=== PATIENT | female | born 1980 | race Caucasian/White ===

== ENCOUNTER 2023-12-09 05:57 | Day surgery (SDC) | payer BC ==
[~2023-12-09] VITALS: Ht 165.1 cm; Wt 88.8 kg
[2023-12-09] VITALS (18 sets, daily range): BP systolic 124–150; BP diastolic 66–99; PULSE 75–90; RESP 11–17; TEMP 98.4; O2SAT 96–100
[~2023-12-09 05:57] MED LIST: CEFD300C17 PO; HYDR-3686 PO; LIDOcaine 1% w/EPI 1:100,000 inj. MDV 50 ML VIAL ONE; cocaine 4% topical solution 4ml bottle ONE; mupirocin 2% ointment 22GM ONE; oxymetazoline 15 ML nasal spray NS ONE; tranexamic acid 100mg/ml inj. ONE
[2023-12-09] MEDS: cefazolin 2gm/D5W 100mL 100 ML IV ONE (06:51)
[2023-12-09] MEDS: tranexamic acid inj. 1,000 MG in normal saline IV soln 100ML IV ONE (06:51)
[2023-12-09] MEDS: ringers solution, lacted 1,000 ML IV SCH (06:52)
[2023-12-09] MEDS: famotidine 20mg tablet PO ONE (06:53)
[2023-12-09] MEDS ORDERED: labetalol 20mg/4ml (5mg/ml) syringe IV PRN (08:00)
[2023-12-09] MEDS ORDERED: proCHLORperazine 10 MG/2 ml inj IV PRN (08:00)
[2023-12-09] MEDS ORDERED: ringers solution, lacted 1,000 ML IV SCH (08:00)
[2023-12-09] MEDS ORDERED: meperidine/PF 25mg/ml syringe IV PRN (08:00)
[2023-12-09] MEDS ORDERED: ondansetron/PF 4mg/2ml inj IV PRN (08:00)
[2023-12-09] MEDS ORDERED: hydrALAZINE 20mg/ml inj. IV PRN (08:00)
[2023-12-09] MEDS ORDERED: morphine 2 MG/ML inj. syringe IV PRN (08:00)
[2023-12-09] MEDS ORDERED: morphine 4 MG/ML inj SYRINge IV PRN (08:00)
[2023-12-09] MEDS ORDERED: fentaNYL/PF 50MCG/1 ML 2ML syringe ONE (08:09)
[2023-12-09] MEDS ORDERED: midazolam 1 mg/ML 2ml injection ONE (08:11)
[2023-12-09] MEDS ORDERED: sevoflurane 250ml liquid IH ONE (08:12)
[2023-12-09] MEDS ORDERED: Thrombin (Bovine) 5,000 unit vial TP ONE (08:20)
[2023-12-09] MEDS ORDERED: epiNEPHrine 1 mg/ml 30ml MDV ONE (08:20)
[2023-12-09] MEDS ORDERED: ondansetron/PF 4mg/2ml inj ONE (08:32)
[2023-12-09] MEDS ORDERED: propofol inj 20 ML IV ONE (08:32)
[2023-12-09] MEDS ORDERED: dexamethasone sod phosphate 4mg/ml inj. ONE (08:32)
[2023-12-09] MEDS ORDERED: LIDOcaine 2% (20mg/ml) 5ml vial ONE (08:32)
[2023-12-09] MEDS ORDERED: mupirocin 2% ointment 22GM ONE (10:16)
[2023-12-09] MEDS ORDERED: LIDOcaine 1% w/EPI 1:100,000 inj. MDV 50 ML VIAL ONE (10:16)
[2023-12-09] MEDS ORDERED: cocaine 4% topical solution 4ml bottle ONE (10:16)
[2023-12-09] MEDS ORDERED: oxymetazoline 15 ML nasal spray NS ONE (10:17)
[2023-12-09] MEDS: acetaminophen 1,000mg/100ml IV 100 ML IV ONE (10:34)
[2023-12-09] MEDS: meperidine/PF 25mg/ml syringe IV PRN ×2 (10:34→11:37)
[2023-12-09] MEDS ORDERED: oxymetazoline 15 ML nasal spray NS PRN (11:25)
[2023-12-09] MEDS: salt irrigation nasal spray 45 ML SPRAY NS PRN (12:30)
[2023-12-09] MEDS ORDERED: mupirocin 2% nasal ointment 1gm UD NS SCH (13:00)
[2023-12-09] MEDS: mupirocin 2% ointment 22GM TP ONE (14:15)
[2023-12-09] MEDS ORDERED: oxymetazoline 15 ML nasal spray NS SCH (20:00)
== END 2023-12-09 12:56 | disposition home or self-care (01) ==
LOC: PAS 05:57
PROVIDERS: ATTEND Otolaryngology
DX: J32.8 Other chronic sinusitis (principal); J33.9 Nasal polyp, unspecified; J34.89 Other specified disorders of nose and nasal sinuses; D80.3 Selective deficiency of immunoglobulin G [IgG] subclasses; F41.9 Anxiety disorder, unspecified; I25.2 Old myocardial infarction; Z87.891 Personal history of nicotine dependence; Z79.2 Long term (current) use of antibiotics; Z79.899 Other long term (current) drug therapy; Z90.49 Acquired absence of other specified parts of digestive tract; Z98.891 History of uterine scar from previous surgery; Z98.890 Other specified postprocedural states; Z88.8 Allergy status to other drugs, medicaments and biological substances
CPT/HCPCS: 30140; 31255; 31267; 31276; 61782; 82948; 87070; 87075; 87102; A6402; J0131; J0171; J0690; J1100; J2175; J2250; J2405; J2704; J3010; J3490; J7030; J7050; J7120; Z7506; Z7508; Z7512; 87077; 87107; 87186; A4618; A6449; A7000